=== PATIENT | male | born 1990 | race Caucasian/White ===

== ENCOUNTER 2018-08-24 21:34 | Emergency (ER) | payer BC, OTHER ==
[~2018-08-24] VITALS: Ht 182.9 cm; Wt 97.5 kg
[~2018-08-24 21:34] MED LIST: BUTALB-APAP-CA1 EACH PO; MOBIC7.5 MG PO; NOHOMEMEDICATIONS; NORCO 5-325 TA1 EACH PO; ZPAK PO
[2018-08-24 21:36] VITALS: BP 135/97
== END 2018-08-24 23:09 | disposition home or self-care (01) ==
LOC: ER 21:34
DX: J06.9 Acute upper respiratory infection, unspecified (principal); Z88.0 Allergy status to penicillin